=== PATIENT | female | born 1980 | race American Indian/Alaskan Native ===

== ENCOUNTER 2016-09-17 22:57 | Emergency (ER) | payer OTHER ==
[2016-09-17 23:05] VITALS: BP 137/75
[2016-09-17 23:59] LABS: Bilirubin,Urine NEG (Negative); Blood,Urine NEG (Negative); Ketones,Urine TR mg/dL (Negative); Leukocyte Esterase,Urine NEG (Negative); Mucus,Urine 2+ /HPF; Nitrite,Urine NEG (Negative)
--- NOTE | 2016-09-21 15:19 | ED Elopement Review ---
ED Pt Elopement review - Results review Lab results: Laboratory Tests 09/17/16 23:23 Urine Color Yellow Urine Turbidity Clear Urine pH 5.0 Ur Specific [place] 1.031 H Urine Protein 30 mg/dl Urine Glucose (UA) Neg Urine Ketones Tr Urine Blood Neg Urine Nitrite Neg Ur Reducing Substances Not Reportable Urine Bilirubin Neg Urine Ictotest Not Reportable Urine Urobilinogen 4.0 Ur Leukocyte Esterase Neg Urine WBC (Auto) 1.0 Urine RBC (Auto) 8.0 U Epithel Cells (Auto) 7.0 Urine Mucus 2+ Urine HCG, Qual Negative - Call Back decision Pt Call Back Decision: No action required
== END 2016-09-18 02:33 | disposition left against medical advice (07) ==
LOC: ED 22:57
DX: M79.605 Pain in left leg (principal); Z53.21 Procedure and treatment not carried out due to patient leaving prior to being seen by health care provider
CPT/HCPCS: 81001; 81025

== ENCOUNTER 2018-05-10 04:54 | Emergency (ER) | payer OTHER ==
[2018-05-10 05:22] VITALS: BP 128/77
== END 2018-05-10 05:36 | disposition left against medical advice (07) ==
LOC: ED 04:54
DX: K92.0 Hematemesis (principal); Z53.21 Procedure and treatment not carried out due to patient leaving prior to being seen by health care provider

== ENCOUNTER 2018-10-21 21:52 | Emergency (ER) | payer OTHER ==
--- NOTE | 2018-10-21 22:00 | Emergency Department Report ---
Blank Doc - Documentation Documentation: This is a 38-year-old female that presents with sore throat. Patient stated t hat sore throat causes her to some SOB. Patient also has urinary frequency. This initial assessment/diagnostic orders/clinical plan/treatment(s) is/are subject to change based on patient's health status, clinical progression and re- assessment by fellow clinical providers in the ED. Further treatment and workup at subsequent clinical providers discretion. Patient/guardians urged not to elope from the ED as their condition may be serious if not clinically assessed and managed. Initial orders include: 1- Patient sent to [facility] for further evaluation and treatment 2- strep swab 3- UA
[2018-10-21 23:21] LABS: Bilirubin,Urine NEG (Negative); Blood,Urine SM (Negative); Color,Urine Straw (Yellow); Mucus,Urine FEW /HPF; Protein,Urine <15 mg/dL mg/dL (Negative)
[2018-10-21 23:23] LABS: HCG Qualitative,Urine Negative (Negative)
[2018-10-22] MEDS ORDERED: TORADOL IV ONE (00:58)
--- NOTE | 2018-10-22 01:00 | Emergency Department Report ---
ED ENT HPI - General Chief complaint: Dyspnea/Respdistress Stated complaint: SOB Time Seen by Provider: 10/21/18 21:59 Source: patient Mode of arrival: Ambulatory Limitations: No Limitations - History of Present Illness Initial comments: 38 year old female with a past medical history of diabetes and anemia presents to the hospital complaints of left-sided neck pain and swelling. Pain is constant, pain is 10/10 in intensity, worse with swallowing, movement, and speaking. Patient states her voice sounds different. Symptoms ongoing 2 days. She denies any current shortness of breath. Complains some mild left flank pain and urinary urgency. She's had a previous tonsillectomy and hysterectomy. PMD: Alyssa. - Related Data Previous Rx's Medication Instructions Recorded Last Taken Type Dextromethorphan/Benzocaine 1 each PO Q2HR PRN #20 lozenge 10/22/18 Unknown Rx [Cepacol Sorethroat-Cough Vesta] Ibuprofen [Motrin] 800 mg PO Q8HR PRN #30 tablet 10/22/18 Unknown Rx Allergies Allergy/AdvReac Type Severity Reaction Status Date / Time iron Allergy Unknown Verified 05/10/18 05:00 ED Dental HPI - General Chief complaint: Dyspnea/Respdistress Stated complaint: SOB Time Seen by Provider: 10/21/18 21:59 Source: patient Mode of arrival: Ambulatory Limitations: No Limitations - Related Data Previous Rx's Medication Instructions Recorded Last Taken Type Dextromethorphan/Benzocaine 1 each PO Q2HR PRN #20 lozenge 10/22/18 Unknown Rx [Cepacol Sorethroat-Cough Vesta] Ibuprofen [Motrin] 800 mg PO Q8HR PRN #30 tablet 10/22/18 Unknown Rx Allergies Allergy/AdvReac Type Severity Reaction Status Date / Time iron Allergy Unknown Verified 05/10/18 05:00 ED Review of Systems ROS: Stated complaint: SOB Other details as noted in HPI Comment: All other systems reviewed and negative ED Past Medical Hx - Past Medical History Hx Diabetes: Yes Additional medical history: anemic - Surgical History Additional Surgical History: hysterectomy 08/2017,tonsillectomy - Social History Smoking Status: Never Smoker Substance Use Type: Alcohol - Medications Home Medications: Home Medications Medication Instructions Recorded Confirmed Last Taken Type Dextromethorphan/Benzocaine 1 each PO Q2HR PRN #20 lozenge 10/22/18 Unknown Rx [Cepacol Sorethroat-Cough Vesta] Ibuprofen [Motrin] 800 mg PO Q8HR PRN #30 tablet 10/22/18 Unknown Rx ED Physical Exam - General Limitations: No Limitations - Other Other exam information: General: No limitations, patient is alert in no acute distress Head exam: Atraumatic, normocephalic Eyes exam: Normal appearance, pupils equal reactive to light, extraocular movements intact ENT: Moist mucous membrane, normal oropharynx without visible tonsils. No posterior exudates, pus, or erythema. Tender left-sided side of neck with lymphadenopathy. No stridor or drooling Neck exam: Normal inspection, full range of motion, no meningismus nontender Respiratory exam: Clear to auscultation bilateral, no wheezes, rales, crackles Cardiovascular: Normal rate and rhythm, normal heart sounds Abdomen: Soft, nondistended, and nontender, with normal bowel sounds, no rebound, or guarding Extremity: Full range of motion normal inspection no deformity Back: Normal Inspection, full range of motion, no tenderness Neurologic: Alert, oriented x3, cranial nerves intact, no motor or sensory deficit Psychiatric: normal affect, normal mood Skin: Warm, dry, intact ED Course Vital Signs 10/21/18 10/22/18 10/22/18 21:59 00:04 00:09 Temperature 99 F 98.2 F Pulse Rate 87 77 Respiratory 20 15 15 Rate Blood Pressure 144/92 Blood Pressure 138/84 [Left] O2 Sat by Pulse 98 100 Oximetry 10/22/18 10/22/18 01:15 03:41 Temperature 98 F Pulse Rate 64 Respiratory 15 15 Rate Blood Pressure Blood Pressure 122/76 [Left] O2 Sat by Pulse 100 Oximetry ED Medical Decision Making - Lab Data Result diagrams: 10/22/18 01:37 10/22/18 01:37 Lab Results 10/21/18 10/22/18 10/22/18 Range/Units 22:36 00:31 01:37 WBC 8.6 (4.5-11.0) K/mm3 RBC 4.23 (3.65-5.03) M/mm3 Hgb 11.7 (10.1-14.3) gm/dl Hct 34.8 (30.3-42.9) % MCV 82 (79-97) fl MCH 28 (28-32) pg MCHC 34 (30-34) % RDW 13.8 (13.2-15.2) % Plt Count 288 (140-440) K/mm3 Lymph % (Auto) 26.8 (13.4-35.0) % [place] % (Auto) 5.5 (0.0-7.3) % Eos % (Auto) 1.9 (0.0-4.3) % Baso % (Auto) 0.7 (0.0-1.8) % Lymph # 2.3 (1.2-5.4) K/mm3 [place] # 0.5 (0.0-0.8) K/mm3 Eos # 0.2 (0.0-0.4) K/mm3 Baso # 0.1 (0.0-0.1) K/mm3 Seg Neutrophils % 65.1 (40.0-70.0) % Seg Neutrophils # 5.6 (1.8-7.7) K/mm3 Sodium (137-145) mmol/L Potassium (3.6-5.0) mmol/L Chloride (98-107) mmol/L Carbon Dioxide (22-30) mmol/L Anion Gap mmol/L BUN (7-17) mg/dL Creatinine (0.7-1.2) mg/dL Estimated GFR ml/min BUN/Creatinine Ratio % Glucose (65-100) mg/dL Calcium (8.4-10.2) mg/dL Urine Color Straw (Yellow) Urine Turbidity Clear (Clear) Urine pH 7.0 (5.0-7.0) Ur Specific [place] 1.010 (1.003-1.030) Urine Protein <15 mg/dl (Negative) mg/dL Urine Glucose (UA) Neg (Negative) mg/dL Urine Ketones Neg (Negative) mg/dL Urine Blood Sm (Negative) Urine Nitrite Neg (Negative) Urine Bilirubin Neg (Negative) Urine Urobilinogen 2.0 (<2.0) mg/dL Ur Leukocyte Esterase Neg (Negative) Urine WBC (Auto) 0.0 (0.0-6.0) /HPF Urine RBC (Auto) 5.0 (0.0-6.0) /HPF U Epithel Cells (Auto) 1.0 (0-13.0) /HPF Urine Mucus Few /HPF Urine HCG, Qual Negative (Negative) Group A Strep Rapid Negative (Negative) 10/22/18 Range/Units 01:37 WBC (4.5-11.0) K/mm3 RBC (3.65-5.03) M/mm3 Hgb (10.1-14.3) gm/dl Hct (30.3-42.9) % MCV (79-97) fl MCH (28-32) pg MCHC (30-34) % RDW (13.2-15.2) % Plt Count (140-440) K/mm3 Lymph % (Auto) (13.4-35.0) % [place] % (Auto) (0.0-7.3) % Eos % (Auto) (0.0-4.3) % Baso % (Auto) (0.0-1.8) % Lymph # (1.2-5.4) K/mm3 [place] # (0.0-0.8) K/mm3 Eos # (0.0-0.4) K/mm3 Baso # (0.0-0.1) K/mm3 Seg Neutrophils % (40.0-70.0) % Seg Neutrophils # (1.8-7.7) K/mm3 Sodium 138 (137-145) mmol/L Potassium 3.6 (3.6-5.0) mmol/L Chloride 100.4 (98-107) mmol/L Carbon Dioxide 25 (22-30) mmol/L Anion Gap 16 mmol/L BUN 9 (7-17) mg/dL Creatinine 0.5 L (0.7-1.2) mg/dL Estimated GFR > 60 ml/min BUN/Creatinine Ratio 18 % Glucose 164 H (65-100) mg/dL Calcium 8.4 (8.4-10.2) mg/dL Urine Color (Yellow) Urine Turbidity (Clear) Urine pH (5.0-7.0) Ur Specific [place] (1.003-1.030) Urine Protein (Negative) mg/dL Urine Glucose (UA) (Negative) mg/dL Urine Ketones (Negative) mg/dL Urine Blood (Negative) Urine Nitrite (Negative) Urine Bilirubin (Negative) Urine Urobilinogen (<2.0) mg/dL Ur Leukocyte Esterase (Negative) Urine WBC (Auto) (0.0-6.0) /HPF Urine RBC (Auto) (0.0-6.0) /HPF U Epithel Cells (Auto) (0-13.0) /HPF Urine Mucus /HPF Urine HCG, Qual (Negative) Group A Strep Rapid (Negative) - Radiology Data Radiology results: report reviewed PROCEDURE: CT NECK W CON TECHNIQUE: Routine axial imaging was obtained of the soft tissues of the neck following the intravenous injection of iodinated contrast. Sagittal and coronal reconstructions were reviewed. HISTORY: left neck pain and swelling COMPARISONS: None FINDINGS: The airway appears normal. There is no evidence of lymphadenopathy in any zack rtment. The parotid and submandibular glands appear normal. The vocal cords and thyroid gland appear normal. The lung apices are clear. The epiglottis is not enlarged. The retropharyngeal space appe ars normal. The vascular structures enhance. The visualized sinuses are clear. There is a deformity of the medial wall of the left orbit possibly related to remote trauma. The mastoid air cells are well- pneumatized. Cervical spine appears normal. IMPRESSION: No acute process identified. - Medical Decision Making ed workup including strep and ct neck unremarkable pt will will be treated for viral laryngitis. outpt f/u encouraged - Differential Diagnosis pharyngitis, laryngitis, dental abscess, Critical Care Time: No Critical care attestation.: If time is entered above; I have spent that time in minutes in the direct care of this critically ill patient, excluding procedure time. ED Disposition Clinical Impression: Viral laryngitis Disposition: - TO HOME OR SELFCARE Is pt being admited?: No Does the pt Need Aspirin: No Condition: Stable Instructions: Laryngitis (ED) Additional Instructions: Take the medication as prescribed. Follow up with your doctor or the clinic/doctor provided. Return if symptoms worsen as indicated by your discharge instructions Prescriptions: Dextromethorphan/Benzocaine [Cepacol Sorethroat-Cough Vesta] 1 each PO Q2HR PRN #20 lozenge PRN Reason: Sore Throat Ibuprofen [Motrin] 800 mg PO Q8HR PRN #30 tablet PRN Reason: Pain , Severe (7-10) Referrals: ALYSSA BARBOZA [Other] - 3-5 Days Forms: Work/School Release Form(ED) Time of Disposition: 03:50
[2018-10-22 01:53] LABS: Basophils # (Auto) 0.1 K/mm3 (0.0-0.1); Basophils % (Auto) 0.7 % (0.0-1.8); Eosinophils # (Auto) 0.2 K/mm3 (0.0-0.4); Eosinophils % (Auto) 1.9 % (0.0-4.3); Hematocrit 34.8 % (30.3-42.9); Hemoglobin 11.7 gm/dl (10.1-14.3); Lymphocytes # (Auto) 2.3 K/mm3 (1.2-5.4); Lymphocytes % (Auto) 26.8 % (13.4-35.0); Mean Corpuscular HGB Conc 34 % (30-34); Mean Corpuscular Volume 82 fl (79-97); Monocytes # (Auto) 0.5 K/mm3 (0.0-0.8); Monocytes % (Auto) 5.5 % (0.0-7.3); Platelet Count 288 K/mm3 (140-440); Red Blood Count 4.23 M/mm3 (3.65-5.03); Red Cell Distribution Width 13.8 % (13.2-15.2)
[2018-10-22 02:15] LABS: BUN/Creatinine Ratio 18; Blood Urea Nitrogen 9 mg/dL (7-17); Calcium 8.4 mg/dL (8.4-10.2); Hemolysis Index 7
--- NOTE | 2018-10-22 02:54 | Cat Scan Report ---
PROCEDURE: CT NECK W CON TECHNIQUE: Routine axial imaging was obtained of the soft tissues of the neck following the intraven ous injection of iodinated contrast. Sagittal and coronal reconstructions were reviewed. HISTORY: left neck pain and swelling COMPARISONS: None FINDINGS: The airway appears normal. There is no evidence of lymphadenopathy in any compartment. The parotid an d submandibular glands appear normal. The vocal cords and thyroid gland appear normal. The lung apice s are clear. The epiglottis is not enlarged. The retropharyngeal space appears normal. The vascular s tructures enhance. The visualized sinuses are clear. There is a deformity of the medial wall of the l eft orbit possibly related to remote trauma. The mastoid air cells are well-pneumatized. Cervical spi ne appears normal. IMPRESSION: No acute process identified.. This document is electronically signed by Jose Pradhan MD., October 22 2018 02:50:10 AM ET
[2018-10-22 03:41] VITALS: BP 122/76
== END 2018-10-22 04:00 | disposition home or self-care (01) ==
LOC: ED 21:52
DX: J04.0 Acute laryngitis (principal)
CPT/HCPCS: 36415; 70491; 80048; 81001; 81025; 85025; 87116; 87430; 96374; 99284; J1885; Q9967

== ENCOUNTER 2019-08-18 07:49 | Outpatient (CLI) | payer OTHER ==
[2019-08-18] MEDS ORDERED: ALBUTEROL 2.5 MG/3 ML NEBU IH ONE (08:27)
== END 2019-08-18 07:50 | disposition home or self-care (01) ==
LOC: PF 07:49
PROVIDERS: ATTEND Internal Medicine
DX: M06.9 Rheumatoid arthritis, unspecified (principal); M72.2 Plantar fascial fibromatosis; J45.909 Unspecified asthma, uncomplicated; D64.9 Anemia, unspecified; E11.9 Type 2 diabetes mellitus without complications; I10 Essential (primary) hypertension; K21.9 Gastro-esophageal reflux disease without esophagitis
CPT/HCPCS: 94060; 94640

== ENCOUNTER 2019-08-27 18:17 | Outpatient (CLI) | payer OTHER ==
--- NOTE | 2019-08-27 20:41 | XRay Report ---
LEFT KNEE 2 VIEW(S) INDICATION / CLINICAL INFORMATION: DIABILITY COMPARISON: None available. FINDINGS: No significant skeletal or soft tissue abnormality on limited evaluation that does not include an obl ique projection. Signer Name: Dewey Choi MD Signed: 08/27/2019 8:37 PM Workstation Name: [id number]
--- NOTE | 2019-08-27 20:42 | XRay Report ---
RIGHT KNEE 2 VIEW(S) INDICATION / CLINICAL INFORMATION: Disability COMPARISON: None available. FINDINGS: No significant skeletal or soft tissue abnormality on a limited evaluation and does not include an ob lique projection. No significant arthritis. Signer Name: Dewey Choi MD Signed: 08/27/2019 8:38 PM Workstation Name: [id number]
--- NOTE | 2019-08-27 20:43 | XRay Report ---
CERVICAL SPINE 3 VIEWS INDICATION / CLINICAL INFORMATION: Diability. COMPARISON: None available. FINDINGS: Minimal spondylosis at C5-6. No fracture or subluxation. Signer Name: Cecil Denson MD Signed: 08/27/2019 8:39 PM Workstation Name: [id number]
--- NOTE | 2019-08-27 20:43 | XRay Report ---
LUMBAR SPINE 3 VIEWS INDICATION / CLINICAL INFORMATION: DIABILITY. COMPARISON: None available. FINDINGS: 5 nonrib-bearing, lumbar type vertebrae. Vertebral body and disc heights are preserved. No significan t facet arthrosis. Alignment is normal. No significant soft tissue abnormality is visualized. Signer Name: Dewey Choi MD Signed: 08/27/2019 8:39 PM Workstation Name: [id number] [email or web address]
== END 2019-08-27 18:18 | disposition home or self-care (01) ==
LOC: XRAY 18:17
PROVIDERS: ATTEND Internal Medicine
DX: Z02.71 Encounter for disability determination (principal); M32.9 Systemic lupus erythematosus, unspecified; M05.79 Rheumatoid arthritis with rheumatoid factor of multiple sites without organ or systems involvement; M47.812 Spondylosis without myelopathy or radiculopathy, cervical region
CPT/HCPCS: 72040; 72100